=== PATIENT | male | born 1960 | race Caucasian/White ===

== ENCOUNTER 2019-04-07 09:49 | Day surgery (SDC) | payer BC ==
[~2019-04-07] VITALS: Ht 175.3 cm; Wt 72.6 kg
[2019-04-07] VITALS (8 sets, daily range): BP systolic 113–135; BP diastolic 65–97
--- NOTE | 2019-04-07 07:43 | Pre-Procedure Note/Attestation ---
Pre-Procedure Note/Attestation Complete Prior to Procedure Planned Procedure: left Procedure Narrative: eswl rirs left stent placement Indications for Procedure Pre-Operative Diagnosis: left renal stone Attestation I attest that I discussed the nature of the procedure; its benefits; risks and complications; and alternatives (and the risks and benefits of such alternatives ), prior to the procedure, with the patient (or the patient's legal car sales representative). I attest that, if there was a reasonable possibility of needing a blood transfusion, the patient (or the patient's legal car sales representative) was given the [facility] standardized written summary, pursuant to the Zaki Josué Blood Safety Act ([place] Health and Safety Code # 1645, as amended). I attest that I re-evaluated the patient just prior to the surgery and that there has been no change in the patient's H&P, except as documented below: Kain Gibson MD Apr 07, 2019 07:43
[~2019-04-07 09:49] MED LIST: ceFAZolin sod 1 GM in NS 55 ML IVPB ONE
[2019-04-07] MEDS ORDERED: NKM (10:29)
[2019-04-07] MEDS ORDERED: Iothalamate Meglumine 60% 30ML INJ ONE ×2 (10:50→12:17)
[2019-04-07] MEDS ORDERED: LR 1000ml 1,000 ML IVLG SCH (11:06)
--- NOTE | 2019-04-07 11:09 | Anethesia Preoperative Eval ---
Anesthesia Pre-op PMH/ROS General Date of Evaluation: Apr 07, 2019 Time of Evaluation: 12:17 Anesthesiologist: Adenike ASA Score: ASA 2 Mallampati Score Class I : Soft palate, uvula, fauces, pillars visible Class II: Soft palate, uvula, fauces visible Class III: Soft palate, base of uvula visible Class IV: Only hard plate visible Mallampati Classification: Class II Surgeon: Arthur Diagnosis: Renolitiasis Surgical Procedure: ESWL Anesthesia History: none Family History: no anesthesia problems Allergies: Coded Allergies: No Known Allergies (Unverified , 04/06/19) Medications: see eMAR Patient NPO?: Yes Past Medical History Gastrointestinal/Genitourinary: Reports: other - Renolithiasis Musculoskeletal/Integumentary: Reports: other - Back Pain Anesthesia Pre-op Phys. Exam Physician Exam Last Vital Signs Date Time Temp Pulse Resp B/P (MAP) Pulse Ox O2 Delivery O2 Flow Rate FiO2 04/07/19 10:30 Room Air 04/07/19 10:16 97.9 72 18 113/65 99 Constitutional: NAD Neurologic: CN 2-12 intact Cardiovascular: RRR Respiratory: CTA Gastrointestinal: S/NT/ND Airway Exam Mallampati Score: Class II MO: full ROM: full Teeth: intact Anesthesia Pre-op A/P Risk Assessment & Plan Assessment: ASA 2 Plan: GA Status Change Before Surgery: No Pre-Antibiotics Dru grams Ancef IV Given Within 1 Hr of Incision: Yes Time Given: 12:31 Saúl Jeong MD Apr 07, 2019 11:09
[2019-04-07] MEDS ORDERED: Hydromorphone 0.5mg/0.5ml inj IVP PRN (11:15)
[2019-04-07] MEDS ORDERED: Metoclopramide 10mg/2ml Inj IVP PRN (11:15)
[2019-04-07] MEDS ORDERED: Ketorolac 30mg Inj IV PRN ×2 (11:15)
[2019-04-07] MEDS ORDERED: Midazolam 2mg/2ml Inj IVP PRN (11:15)
[2019-04-07] MEDS ORDERED: Meperidine 50mg/ml Inj(FOR RIGORS ONLY) IVP PRN (11:15)
[2019-04-07] MEDS ORDERED: HYDROcodone/Acetamin 5/325 tab ORAL PRN ×2 (11:15→13:45)
[2019-04-07] MEDS ORDERED: Atropine Sulfate 0.4mg/ml inj IVP PRN (11:15)
[2019-04-07] MEDS ORDERED: oxyCODONE HCL/Acetaminophen 5/325mg ORAL PRN (11:15)
[2019-04-07] MEDS ORDERED: LORazepam Inj 2mg/ml 1ml IV PRN (11:15)
[2019-04-07] MEDS ORDERED: HYDROcodone/Acetamin 7.5/325 tab ORAL PRN (11:15)
[2019-04-07] MEDS ORDERED: fentaNYL 100 mcg/2 mL IV PRN (11:15)
[2019-04-07] MEDS ORDERED: DiphenhydrAMINE 50mg/ml Inj IVP PRN (11:15)
[2019-04-07] MEDS ORDERED: Labetalol 5mg/ml 20ml vial IV PRN (11:15)
[2019-04-07] MEDS ORDERED: Lidocaine 1% MPF 10mg/ml 5ml ONE (11:27)
[2019-04-07] MEDS ORDERED: Sodium Chloride 10ml vial INJ ONE (11:27)
[2019-04-07] MEDS ORDERED: Propofol 200mg/20ml IV ONE (11:27)
[2019-04-07] MEDS ORDERED: Dexamethasone 4mg/ml vial ONE (11:27)
[2019-04-07] MEDS ORDERED: fentaNYL 100 mcg/2 mL IV ONE (11:28)
--- NOTE | 2019-04-07 11:30 | Immediate Post-Op Evaluation ---
Immediate Post-Op Evalulation Immediate Post-Op Evalulation Procedure: ESWL Date of Evaluation: Apr 07, 2019 Time of Evaluation: 13:49 IV Fluids: 1000 LR Blood Products: 0 Estimated Blood Loss: 0 Urinary Output: 0 Blood Pressure Systolic: 135 Blood Pressure Diastolic: 88 Pulse Rate: 75 Respiratory Rate: 16 O2 Sat by Pulse Oximetry: 100 Temperature (Fahrenheit): 97.2 Pain Score (1-10): 2 Nausea: No Vomiting: No Complications 0 Patient Status: awake, reacts, patent, extubated, none Hydration Status: adequate Dru Gram Ancef IV Given Within 1 Hr of Incision: Yes Time Given: 12:31 Saúl Jeong MD Apr 07, 2019 11:30
--- NOTE | 2019-04-07 11:31 | 48 Hour Post Anesthesia Eval ---
Post Anesthesia Evaluation Procedure: ESWL Date of Evaluation: Apr 07, 2019 Time of Evaluation: 15:54 Blood Pressure Systolic: 127 0: 73 Pulse Rate: 76 Respiratory Rate: 18 Temperature (Fahrenheit): 98.2 O2 Sat by Pulse Oximetry: 99 Airway: patent Nausea: No Vomiting: No Pain Intensity: 2 Hydration Status: adequate Cardiopulmonary Status: Stable Mental Status/LOC: patient returned to baseline Follow-up Care/Observations: 0 Post-Anesthesia Complications: 0 Follow-up care needed: ready to discharge Saúl Jeong MD Apr 07, 2019 11:31
[2019-04-07] MEDS ORDERED: LR 1000ml ONE (12:17)
[2019-04-07] MEDS ORDERED: Glycopyrrolate 0.2mg/ml 1ml Vial ONE (12:47)
--- NOTE | 2019-04-07 13:37 | Brief Operative Note ---
Immediate Post Operative Note Operative Note Pre-op Diagnosis: left renal stone Procedure: RIRS ESWL LEFT Post-op Diagnosis: same Post-op Diagnosis: same as pre-op Surgeon: Cassius Gibson Anesthesia: general Specimen: none Complications: none Condition: stable Fluids: 500 Estimated Blood Loss: minimal Implant(s) used?: No Kain Gibson MD Apr 07, 2019 13:37
[2019-04-07] MEDS ORDERED: HYDROmorphone 1mg/ml Carpuject SUBQ PRN (13:45)
[2019-04-07] MEDS ORDERED: Tylenol #3 tab (300mg/30mg) ORAL PRN (13:45)
[2019-04-07] MEDS ORDERED: D5 1/2NS 1,000 ML IV SCH (18:00)
--- NOTE | 2019-04-07 18:45 | Operative Note - Dictated ---
DATE OF OPERATION: 04/07/2019 SURGEON: Kain Gibson M.D. PREOPERATIVE DIAGNOSIS: Left renal stone. POSTOPERATIVE DIAGNOSIS: Left renal stone. OPERATION PERFORMED: Retrograde intrarenal surgery combined with extracorporeal shock wave lithotripsy of the 6 mm left renal stone. MICROBIOLOGY LAB TECHNICIAN: Kain Gibson M.D. ANESTHESIA: General. FINDINGS: A 6 mm stone in the mid calyx of the left kidney. INDICATIONS FOR SURGERY: The patient had multiple renal stones one the left, one on the right with periodic flank pains. Treatment options were explained to him about all potential complications as well. He signed the consent. DESCRIPTION OF PROCEDURE: He was brought to the operating room, placed in lithotomy position, prepped and draped in standard fashion. Under general anesthesia, cystoscope was introduced into the bladder. A guidewire was placed into the left kidney. Flexible ureteroscope was introduced. Stone was mobilized and visualized with scope and using extracorporeal shock wave lithotripsy with 9 kilovolts shock stone was fragmented into small pieces. The procedure was then terminated. The patient was transferred to the recovery room in stable condition. No evidence of complications. Kain Gibson M.D. DR: Ben JOB#: [id number] CC:
== END 2019-04-07 16:00 | disposition home or self-care (01) ==
LOC: SUR 09:49
DX: N20.0 Calculus of kidney (principal)
CPT/HCPCS: 52353; J0690; J1100; J2250; J2405; J2704; J3010; J7120; 94003; 94150